=== PATIENT | male | born 1955 | race Caucasian/White ===

== ENCOUNTER 2021-12-22 14:02 | Inpatient (IN) | payer OTHER, MEDICAID ==
[~2021-12-22] VITALS: Ht 167.6 cm; Wt 67.6 kg
[2021-12-22 14:15] VITALS: BP_SYST 127
--- NOTE | 2021-12-22 14:15 | NUR ---
Patient to ER bed 2 to gown for evaluation. Side rails up. Report given to GRIFFIN MAHMOOD.
--- NOTE | 2021-12-22 14:30 | NUR ---
ER at bedside examining patient.
--- NOTE | 2021-12-22 14:45 | NUR ---
PT BIB [facility] FROM [facility] S/P SEIZURE.PT GIVEN ATIVAN PRIOR TO ARRIVAL. NO ACUTE DISTRESS NOTED AT THIS TIME.
--- NOTE | 2021-12-22 15:00 | NUR ---
PER EMS REPORT. PT COMMUNICATES WITH CELL PHONE. PT UNABLE TO USE COMPREHENIBLE LANGUAGE.
--- NOTE | 2021-12-22 15:20 | NUR ---
PT H/O HYPERLIPIDEMIA,CVA,HEMIPARESIS AND HEMIPLEGIA,HTN,GERD,BPH AND NONTRAUMATIC INTERCRANIAL HEMMORHAGE.
[2021-12-22 16:45] LABS: BASOPHILS # (AUTO) 0.1 K/uL (0.0-0.2); BASOPHILS % (AUTO) 1.9 % (0.0-2.0); EOSINOPHILS # (AUTO) 0.1 K/uL (0.0-0.4); EOSINOPHILS % (AUTO) 1.3 % (0.0-4.0); HEMATOCRIT 39.9 % (36-54); HEMOGLOBIN 13.4 g/dL (14.0-18.0); LYMPHOCYTES # (AUTO) 0.7 K/uL (1.0-5.5); LYMPHOCYTES % (AUTO) 9.6 % (20.5-51.5); MEAN CORPUSCULAR HEMOGLOBIN 31 pg (27-31); MEAN CORPUSCULAR HGB CONC 34 % (32-36); MEAN CORPUSCULAR VOLUME 92 fL (79.0-98.0); MONOCYTES # (AUTO) 0.2 K/uL (0.0-1.0); MONOCYTES % (AUTO) 2.9 % (1.7-9.3); NEUTROPHILS # (AUTO) 6.4 K/uL (1.8-7.7); NEUTROPHILS % (AUTO) 84.3 % (40.0-70.0); PLATELET COUNT (AUTO) 311 K/uL (130-430); RED BLOOD CELL COUNT(AUTO) 4.35 MIL/uL (4.2-6.2); RED CELL DISTRIBUTION WIDTH 14.5 % (9.0-15.0); WHITE BLOOD COUNT (AUTO) 7.6 K/uL (4.8-10.8)
[2021-12-22 16:52] LABS: ANION GAP 10 (5-15); CALCIUM 8.6 mg/dL (8.4-11.0); CHLORIDE 102 mmol/L (98-107); CREATININE 1.41 mg/dL (0.55-1.30); GLUCOSE 139 mg/dL (70-99); POTASSIUM 3.9 mmol/L (3.5-5.1); SODIUM SERUM 134 mmol/L (136-145); UREA NITROGEN, BLOOD 20 mg/dL (8-21)
[2021-12-22 17:01] LABS: ALANINE AMINOTRANSFERASE 14 U/L (12-78); ALBUMIN 3.5 g/dL (3.4-4.8); ASPARTATE AMINOTRANSFERASE 24 U/L (10-37); TOTAL BILIRUBIN 0.4 mg/dL (0.0-1.0)
[2021-12-22 17:07] LABS: GFR AFRICAN AMERICAN 64 mL/min (>90)
[2021-12-22] MEDS ORDERED: levETIRAcetam 1,000 MG IV BAG 100 ML IV ONE (18:45)
--- NOTE | 2021-12-22 19:20 | NUR ---
First contact with pt, pt has cc of seizure activity. Pt currently laying in gurney quietly, alert, and cooperative. S1S2 regular, resp even and unlabored, all other VSS, seizure precautions are in place. Will continue to monitor.
--- NOTE | 2021-12-22 19:44 | NUR ---
Admit bed requested Patient will be admitted to care of Dr. LOPEZ. Admitted to ICUunit. Diagnosis INTRACRANIAL HEMORRHAGE Inpatient (Yes or No) YES Observation (Yes or No) Orientation concerns or request close to nursing station (Yes or No) YES Covid Status PENDING On vent or bipap NO Isolation requirements NO Needs a sitter NO From Home (Yes or if No enter name of facility) [facility] Requires Dialysis (Yes or No) NO Med Rec Completed (Yes of No)YES
[2021-12-22] MEDS ORDERED: LORazepam 2 MG/ML VIAL IVP PRN (20:00)
[2021-12-22] MEDS ORDERED: INSULIN REGULAR, HUMAN 100 UNITS/ML, 10 ML VIAL (humuLIN R) SUBCUT PRN (20:00)
[2021-12-22] MEDS ORDERED: cloNIDine HCL 0.1 MG TABLET PO PRN (20:00)
[2021-12-22] MEDS ORDERED: DEXTROSE 50% JECT 50 ML DISP.SYRIN IVP PRN (20:00)
[2021-12-22] MEDS ORDERED: LOP600 PO (20:06)
[2021-12-22] MEDS ORDERED: CHOL500013 PO (20:06)
[2021-12-22] MEDS ORDERED: SENN-153 PO (20:06)
[2021-12-22] MEDS ORDERED: OMEP20CA4 GT (20:06)
[2021-12-22] MEDS ORDERED: CARB15DR EACH EYE (20:06)
[2021-12-22] MEDS ORDERED: CYAN250010 PO (20:06)
[2021-12-22] MEDS ORDERED: FOLI-43 PO (20:06)
[2021-12-22] MEDS ORDERED: INSU100V32 (20:06)
[2021-12-22] MEDS ORDERED: LEVE100S PO (20:06)
[2021-12-22] MEDS ORDERED: CLON0.1T PO (20:06)
[2021-12-22] MEDS ORDERED: LISI40TA13 PO (20:06)
[2021-12-22] MEDS ORDERED: DOCU100T9 PO (20:06)
[2021-12-22] MEDS ORDERED: NEU100 PO (20:06)
[2021-12-22] MEDS ORDERED: TAMS-11 PO (20:06)
[2021-12-22] MEDS ORDERED: UTI-STAT PO (20:06)
[2021-12-22] MEDS ORDERED: RIVA15TA PO (20:06)
[2021-12-22] MEDS ORDERED: TOBRADEXD RIGHT EYE (20:06)
[2021-12-22] MEDS ORDERED: NOR10 PO (20:06)
[2021-12-22] MEDS ORDERED: FENO145T PO (20:06)
[2021-12-22] MEDS ORDERED: BACL10TA PO (20:06)
[2021-12-22] MEDS ORDERED: MULT-1184 PO (20:06)
--- NOTE | 2021-12-22 20:06 | NUR ---
Medication reconciliation completed with information provided by JUNIOR HEADLEY. Any prior medication reconciliation on file was reviewed and corrected.
--- NOTE | 2021-12-22 20:15 | NUR ---
Pt provided with new linen. VSS, brother is at bedside.
--- NOTE | 2021-12-22 21:19 | NUR ---
Provided pt with small sips of water, per family's request. Pt tolerated well.
--- NOTE | 2021-12-22 23:53 | NUR ---
Pt laying in bed quietly with eyes closed. VSS
[2021-12-23] VITALS (24 sets, daily range): BP systolic 85–124
--- NOTE | 2021-12-23 01:45 | NUR ---
ICU ADMIT Patient is awake and alert. RR even and unlabored. Patient on RA, SR on the monitor. Skin warm and dry. IV18g to LFA. Safety precautions in place, call light within reach. Will continue to monitor.
[2021-12-23] MEDS: D5/0.45 NS 1,000 ML IV SCH ×2 (02:31→21:04)
--- NOTE | 2021-12-23 07:30 | NUR ---
REceived report bedside from overnight associate RN. Patient is resting in bed with no signs of acute distress. Patient's breathing is normal, unlabored and even. Breath sounds are clear bilaterally. Patient has Left forearm IV running D5/.5ns @ 60ml/hr, iv it patent with no signs of infiltration. 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 Patient skin is clear and intact. Reported that when patient is asleep, HR and BD tend to decrease, but when aroused, they come back WNL. Unable to fully assess alert and orientation because the patient does no speak wolof. When asking the patientn simple "YES or NO" questions, he answers appropriately and is able to communicate his needs.
--- NOTE | 2021-12-23 08:30 | NUR ---
NOTIFIED OF CONSULT ELLYN KAISER ORDERING PHY: DR. THOMAS REASON FOR CONSULT: [facility] DIALED: [phone] SPOKE TO: ELLYN MERIDA
--- NOTE | 2021-12-23 08:35 | NUR ---
NOTIFIED OF CONSULT KOSTA ESCOBAR ORDERING PHY: DR. LOPEZ REASON FOR CONSULT: [facility] DIALED: [phone] SPOKE TO: RADHA
[2021-12-23] MEDS: levETIRAcetam 500 MG in NS 100 ML IV SCH ×2 (08:38→21:04)
--- NOTE | 2021-12-23 09:30 | NUR ---
Received new orders from Dr. Schwartz for CT and venous Doppler.
--- NOTE | 2021-12-23 10:15 | NUR ---
Patient taken to CT scan with Nhung and RN on transport monitor.
--- NOTE | 2021-12-23 10:34 | NUR ---
returned from CT. Patient had bowel movement and was cleaned. Linen changed and patient skin is clear
[2021-12-23 14:05] LABS: CALCIUM 8.9 mg/dL (8.4-11.0); CREATININE 1.11 mg/dL (0.55-1.30); POTASSIUM 3.9 mmol/L (3.5-5.1)
--- NOTE | 2021-12-23 15:28 | NUR ---
Patient to be put on swallow precautions. Provider encouraged patient to eat some pureed diet. When fed, the patient swallowed but began coughing profusely Patient was able to swallow water without issues, but the pureed diet caused the patient to cough. Patient will now wait for a swallow screen to advance diet.
--- NOTE | 2021-12-23 18:24 | NUR ---
ST EVALUATION COMPLETED. ST TX NOT INDICATED AT THIS TIME. RECOMMEND PO DIET OF PUREE/NECTAR THICK LIQUIDS WITH 1:1 FEEDER AND FULL ASPIRATION PRECAUTIONS.
--- NOTE | 2021-12-23 19:00 | NUR ---
RECD REPORT FROM TRICE MAHMOOD, 1910 ASSUMED CARE, ALERT AND RESPONSIVE, VSS, AFEBRILE ON ROOM AIR. CONT TO MONITOR.
--- NOTE | 2021-12-23 19:30 | NUR ---
CALLED DR LOPEZ ADVISED DOWNGRADE TO TELE.
--- NOTE | 2021-12-23 19:45 | NUR ---
S/B DR BRAMBILA AT BEDSIDE NO NEW ORDERS.
[2021-12-24] VITALS (17 sets, daily range): BP systolic 98–145
[2021-12-24 07:00] LABS: BASOPHILS % (AUTO) 0.3 % (0.0-2.0); EOSINOPHILS # (AUTO) 0.2 K/uL (0.0-0.4); EOSINOPHILS % (AUTO) 3.5 % (0.0-4.0); HEMATOCRIT 35.5 % (36-54); HEMOGLOBIN 12.1 g/dL (14.0-18.0); LYMPHOCYTES # (AUTO) 1.6 K/uL (1.0-5.5); LYMPHOCYTES % (AUTO) 29.3 % (20.5-51.5); MEAN CORPUSCULAR HEMOGLOBIN 32 pg (27-31); MEAN CORPUSCULAR HGB CONC 34 % (32-36); MEAN CORPUSCULAR VOLUME 93 fL (79.0-98.0); MONOCYTES # (AUTO) 0.5 K/uL (0.0-1.0); MONOCYTES % (AUTO) 8.8 % (1.7-9.3); NEUTROPHILS # (AUTO) 3.3 K/uL (1.8-7.7); NEUTROPHILS % (AUTO) 58.1 % (40.0-70.0); PLATELET COUNT (AUTO) 250 K/uL (130-430); RED BLOOD CELL COUNT(AUTO) 3.84 MIL/uL (4.2-6.2); RED CELL DISTRIBUTION WIDTH 14.4 % (9.0-15.0); WHITE BLOOD COUNT (AUTO) 5.6 K/uL (4.8-10.8)
[2021-12-24 07:23] LABS: INR 1.1 (0.80-1.20); PROTHROMBIN TIME 11.2 SECS (9.5-12.5)
[2021-12-24 07:28] LABS: ALBUMIN 3.4 g/dL (3.4-4.8); CALCIUM 8.9 mg/dL (8.4-11.0); CREATININE 1.02 mg/dL (0.55-1.30); PHOSPHORUS 2.9 mg/dL (2.7-4.5); POTASSIUM 3.5 mmol/L (3.5-5.1); TOTAL BILIRUBIN 0.6 mg/dL (0.0-1.0)
[2021-12-24] MEDS: levETIRAcetam 500 MG in NS 100 ML IV SCH ×2 (09:01→21:34)
[2021-12-24 10:55] LABS: FREE T4 (FREE THYROXINE) 1.1 ng/dL (0.6-1.6); THYROID STIMULATING HORMONE 1.67 uIu/mL (0.34-4.82)
[2021-12-24] MEDS: D5/0.45 NS 1,000 ML IV SCH (16:14)
--- NOTE | 2021-12-24 16:29 | NUR ---
PATIENTAAOX1 NON VERBAL LTSIDE HEMIPLEGIA ROOM AIR NO SOB NON LABORED BREATHING ABDOMEN SOFT NON TENDER DIET TOLERATED TELE;SR DENIED CHEST PAIN ANY PAIN SBP KEEP;110 OVER SKIN IS DRY INTACT NO EDEMA NOTED FAMILY MEMBER BROTHER AND SISTER AT BEDSIDE B-MRI EEG DONE WILL CONTINUE MONITORING CLOSE OBSERVATION
[2021-12-24] MEDS: PEG 400/HYPROMELLOSE/GLYCERIN 15 ML DROPS OP SCH ×2 (18:00→21:34)
--- NOTE | 2021-12-24 19:45 | NUR ---
Pt report received. Pt alert, responsive, watching TV. Pt on RA with VSS per bedside residential roofer helper. Pt non-verbal, no s/s distress or pain. LFA PIV patent and secure with D5 1/2 NS at 60 mL/hr. Condom cath in place draining clear yellow urine to bag. No seizure activity noted. Bed in low position, SR up x 2, call light in reach.
[2021-12-24] MEDS ORDERED: hydrALAZINE HCL 20 MG/ML VIAL IVP PRN (20:30)
--- NOTE | 2021-12-24 20:44 | NUR ---
TRANSFER TO [facility] FROM ICU PATIENT RECEIVED, AWAKE, ALERT, NO S/S OF ACUTE DISTRESS. BREATHING IS EVEN AND UNLABORED. HOB RAISED. IV SITE PATENT, NO SIGNS OF INFILTRATION OR INFECTION NOTED. CONDOM CATH ATTACHED AND DRAINING BY GRAVITY. PATIENT DENIES PAIN. CALL LIGHT WITH PATIENT, DEMONSTRATED BACK PROPER USE. BED ALARM ON. BED IS LOCKED AND AT LOWEST POSITION. WILL CONTINUE TO MONITOR.
--- NOTE | 2021-12-24 20:46 | NUR ---
Pt transferred to [facility] Rm 119A in stable condition via hospital bed and on satellite project site monitor. Report given to ELA Ruiz.
[2021-12-24 23:56] LABS: BILIRUBIN,URINE NEGATIVE (NEGATIVE); BLOOD, URINE NEGATIVE (NEGATIVE); CLARITY/URINE CLEAR (CLEAR); COLOR,URINE YELLOW (YELLOW); GLUCOSE,URINE NEGATIVE (NEGATIVE); KETONES,URINE TRACE (NEGATIVE); LEUKOCYTE ESTERASE ,URINE NEGATIVE (NEGATIVE); NITRITE, URINE NEGATIVE (NEGATIVE); PROTEIN URINE NEGATIVE (NEGATIVE)
[2021-12-25] VITALS: BP_SYST 134
[2021-12-25] MEDS: D5/0.45 NS 1,000 ML IV SCH ×2 (02:08→21:55)
--- NOTE | 2021-12-25 03:47 | NUR ---
Consultation Paged Reason for Consultation: abnormal EKG Was consult called: Y Person who was notified: Shana Consulting Physician: Dr. Ballard Ordering Physician: Dr. Schwartz
--- NOTE | 2021-12-25 07:30 | NUR ---
CLOSING NOTE ENDORSED TO DAYSHIFT NURSE. PATIENT IN BED, WATCHING TV. ALL NEEDS MET.
[2021-12-25 08:00] VITALS: BP_SYST 138
[2021-12-25 08:25] LABS: BASOPHILS % (AUTO) 0.3 % (0.0-2.0); EOSINOPHILS # (AUTO) 0.2 K/uL (0.0-0.4); EOSINOPHILS % (AUTO) 3.8 % (0.0-4.0); HEMATOCRIT 37.7 % (36-54); HEMOGLOBIN 12.7 g/dL (14.0-18.0); LYMPHOCYTES # (AUTO) 1.4 K/uL (1.0-5.5); LYMPHOCYTES % (AUTO) 25.5 % (20.5-51.5); MEAN CORPUSCULAR HEMOGLOBIN 31 pg (27-31); MEAN CORPUSCULAR HGB CONC 34 % (32-36); MEAN CORPUSCULAR VOLUME 92 fL (79.0-98.0); MONOCYTES # (AUTO) 0.4 K/uL (0.0-1.0); MONOCYTES % (AUTO) 7.7 % (1.7-9.3); NEUTROPHILS # (AUTO) 3.5 K/uL (1.8-7.7); NEUTROPHILS % (AUTO) 62.7 % (40.0-70.0); PLATELET COUNT (AUTO) 266 K/uL (130-430); RED BLOOD CELL COUNT(AUTO) 4.12 MIL/uL (4.2-6.2); RED CELL DISTRIBUTION WIDTH 14.3 % (9.0-15.0); WHITE BLOOD COUNT (AUTO) 5.5 K/uL (4.8-10.8)
[2021-12-25 08:52] LABS: ALBUMIN 3.1 g/dL (3.4-4.8); CALCIUM 8.6 mg/dL (8.4-11.0); CREATININE 1.09 mg/dL (0.55-1.30); POTASSIUM 3.7 mmol/L (3.5-5.1); TOTAL BILIRUBIN 0.4 mg/dL (0.0-1.0)
[2021-12-25] MEDS: levETIRAcetam 500 MG in NS 100 ML IV SCH (09:57)
[2021-12-25] MEDS: PEG 400/HYPROMELLOSE/GLYCERIN 15 ML DROPS OP SCH ×4 (09:58→21:54)
[2021-12-25] MEDS: lisinopriL 20 MG TABLET PO SCH (09:59)
[2021-12-25] MEDS ORDERED: cloNIDine HCL 0.1 MG TABLET PO SCH (11:45)
[2021-12-25 12:00] VITALS: BP_SYST 147
[2021-12-25] MEDS ORDERED: lisinopriL 5 MG TABLET PO SCH (12:00)
[2021-12-25] MEDS ORDERED: CYANOCOBALAMIN 1000 mCg TABLET PO ONE (12:00)
[2021-12-25] MEDS ORDERED: lisinopriL 20 MG TABLET PO SCH (12:00)
[2021-12-25] MEDS ORDERED: TOBRAMYCIN/DEXAMETHASONE Non-Formulary EYE DROPS.SUSP 2.5 ML OP SCH (13:00)
[2021-12-25 16:00] VITALS: BP_SYST 142
--- NOTE | 2021-12-25 20:00 | NUR ---
OPENING NOTE PATIENT IS AWAKE, ALERT, NO S/S OF ACUTE DISTRESS. PT IS NON VERBAL AND COMMUNICATED WITH THUMBS UP AND GESTURES. BREATHING IS EVEN AND UNLABORED. HOB RAISED. IV SITE PATENT, NO SIGNS OF INFILTRATION OR INFECTION NOTED. CONDOM CATH WAS REMOVED BY PT AND URINAL WAS GIVEN PATIENT DENIES PAIN. CALL LIGHT WITH PATIENT, DEMONSTRATED BACK PROPER USE. ALL SAFETY AND SEIZURE PRECAUTIONS IN PLACE
[2021-12-25 20:41] VITALS: BP_SYST 142
[2021-12-25] MEDS: BACLOFEN 10 MG TABLET PO SCH (21:54)
[2021-12-25] MEDS: levETIRAcetam 500 MG TABLET PO SCH (21:54)
[2021-12-26 01:20] VITALS: BP_SYST 126
--- NOTE | 2021-12-26 02:00 | NUR ---
PT IN BED ASLEEP WITH NO S/S OF DISTRESS NOTED. SAFETY AND SEIZURE PRECAUTIONS REMAIN IN PLACE
--- NOTE | 2021-12-26 07:30 | NUR ---
CLOSING NOTE REPORT GIVEN TO DAY SHIFT RN. PT IN ROOM AWAKE WATCHING TV AT THIS TIME. ALL SAFETY AND SEIZURE PRECAUTIONS REMAIN IN PLACE
[2021-12-26 07:41] LABS: CREATININE 1.18 mg/dL (0.55-1.30); POTASSIUM 3.8 mmol/L (3.5-5.1)
[2021-12-26 07:52] LABS: BASOPHILS % (AUTO) 0.2 % (0.0-2.0); EOSINOPHILS # (AUTO) 0.2 K/uL (0.0-0.4); EOSINOPHILS % (AUTO) 1.8 % (0.0-4.0); HEMATOCRIT 35.4 % (36-54); LYMPHOCYTES % (AUTO) 22.3 % (20.5-51.5); MEAN CORPUSCULAR HEMOGLOBIN 31 pg (27-31); MEAN CORPUSCULAR HGB CONC 34 % (32-36); MEAN CORPUSCULAR VOLUME 91 fL (79.0-98.0); MONOCYTES # (AUTO) 0.6 K/uL (0.0-1.0); MONOCYTES % (AUTO) 6.4 % (1.7-9.3); NEUTROPHILS # (AUTO) 6.2 K/uL (1.8-7.7); NEUTROPHILS % (AUTO) 69.3 % (40.0-70.0); PLATELET COUNT (AUTO) 265 K/uL (130-430); RED BLOOD CELL COUNT(AUTO) 3.88 MIL/uL (4.2-6.2); RED CELL DISTRIBUTION WIDTH 14.4 % (9.0-15.0)
[2021-12-26] MEDS ORDERED: PANTOPRAZOLE SODIUM 40 MG TAB PO SCH (09:00)
[2021-12-26] MEDS ORDERED: TAMSULOSIN HCL 0.4 MG CAP PO SCH (09:00)
[2021-12-26] MEDS ORDERED: CYANOCOBALAMIN 1000 mCg TABLET PO SCH (09:00)
[2021-12-26] MEDS ORDERED: GEMFIBROZIL 600 MG TABLET (LOPID) PO SCH (09:00)
[2021-12-26] MEDS ORDERED: CHOLECALCIFEROL (VITAMIN D3) 5,000 UNIT TABLET PO SCH (09:00)
[2021-12-26] MEDS ORDERED: OMEPRAZOLE Non-Formulary 20 MG CAPSULE.DR GT SCH (09:00)
[2021-12-26] MEDS: PEG 400/HYPROMELLOSE/GLYCERIN 15 ML DROPS OP SCH ×2 (09:12→13:00)
[2021-12-26] MEDS: levETIRAcetam 500 MG TABLET PO SCH (09:14)
[2021-12-26] MEDS: lisinopriL 20 MG TABLET PO SCH (09:15)
[2021-12-26] MEDS: BACLOFEN 10 MG TABLET PO SCH (09:29)
[2021-12-26 09:52] VITALS: BP_SYST 158
[2021-12-26 11:00] VITALS: BP_SYST 158
--- NOTE | 2021-12-26 11:30 | NUR ---
Discharge Planning: [facility]NP faxed pt referral to [facility]#[phone] and spoke to admissions pt will go to Rm 26B, [facility]NP arranged transport with [facility] [phone] S 4:00pm P/U. DCP made nurse and CM aware. Patient packet taken to nurse station.
[2021-12-26] MEDS ORDERED: LISI20TA30 PO (13:43)
== END 2021-12-26 17:29 | DRG 64 ==
LOC: SED 14:02 → SIC 19:21 → STU 12-24 21:21
PROVIDERS: ADMIT Internal Medicine; ATTEND Internal Medicine
PROC: 4A10X4Z Monitoring of Central Nervous Electrical Activity, External Approach (ICD-10-PCS; principal; 2021-12-24)
DX: I61.1 Nontraumatic intracerebral hemorrhage in hemisphere, cortical (principal); N17.0 Acute kidney failure with tubular necrosis; E44.1 Mild protein-calorie malnutrition; R47.01 Aphasia; I69.351 Hemiplegia and hemiparesis following cerebral infarction affecting right dominant side; G40.409 Other generalized epilepsy and epileptic syndromes, not intractable, without status epilepticus; E78.5 Hyperlipidemia, unspecified; I12.9 Hypertensive chronic kidney disease with stage 1 through stage 4 chronic kidney disease, or unspecified chronic kidney disease; E11.22 Type 2 diabetes mellitus with diabetic chronic kidney disease; N18.9 Chronic kidney disease, unspecified; N40.0 Benign prostatic hyperplasia without lower urinary tract symptoms; D64.9 Anemia, unspecified; E11.21 Type 2 diabetes mellitus with diabetic nephropathy; Z20.822 Contact with and (suspected) exposure to COVID-19; G93.89 Other specified disorders of brain; Z74.01 Bed confinement status; Z86.718 Personal history of other venous thrombosis and embolism; Z93.1 Gastrostomy status; Z68.24 Body mass index [BMI] 24.0-24.9, adult
CPT/HCPCS: 36415; 70450-TC; 70551; 71045; 76376; 80048; 80053; 80061; 81003; 82306; 82607; 82962; 83735; 84100; 84439; 84443; 84484; 85025; 85610-TC; 85730-TC; 87081; 92610-GN; 93005; 93306; 93880; 93970; 95816; 96374; 97110-GP; 97530-GP; 99285; G0378; J1815; J1953

== ENCOUNTER 2022-05-12 22:30 | Emergency (ER) | payer OTHER, MEDICAID ==
[~2022-05-12] VITALS: Ht 165.1 cm; Wt 61.2 kg
[~2022-05-12 22:30] MED LIST: CARB15DR EACH EYE; CHOL500013 PO; CLON0.1T PO; CYAN250010 PO; DOCU100T9 PO; FENO145T PO; FOLI-43 PO; INSU100V32; LEVE100S PO; LISI20TA30 PO; MULT-1184 PO; OMEP20CA4 GT; SENN-153 PO; TAMS-11 PO; TOBRADEXD RIGHT EYE; UTI-STAT PO
[2022-05-12 22:34] VITALS: BP_SYST 164
[2022-05-12] MEDS ORDERED: NACL 0.9% 1,000 ML IV ONE (22:45)
[2022-05-12] MEDS ORDERED: LORazepam 2 MG/ML VIAL ONE (23:14)
[2022-05-12] MEDS ORDERED: LORazepam 2 MG/ML VIAL IVP ONE (23:15)
[2022-05-12 23:18] LABS: BASOPHILS % (AUTO) 0.5 % (0.0-2.0); EOSINOPHILS # (AUTO) 0.4 K/uL (0.0-0.4); EOSINOPHILS % (AUTO) 5.5 % (0.0-4.0); HEMATOCRIT 34.9 % (36-54); LYMPHOCYTES # (AUTO) 2.8 K/uL (1.0-5.5); LYMPHOCYTES % (AUTO) 37.7 % (20.5-51.5); MEAN CORPUSCULAR HEMOGLOBIN 33 pg (27-31); MEAN CORPUSCULAR HGB CONC 34 % (32-36); MEAN CORPUSCULAR VOLUME 95 fL (79.0-98.0); MONOCYTES # (AUTO) 0.5 K/uL (0.0-1.0); NEUTROPHILS # (AUTO) 3.8 K/uL (1.8-7.7); NEUTROPHILS % (AUTO) 50.3 % (40.0-70.0); PLATELET COUNT (AUTO) 234 K/uL (130-430); RED BLOOD CELL COUNT(AUTO) 3.67 MIL/uL (4.2-6.2); RED CELL DISTRIBUTION WIDTH 14.4 % (9.0-15.0); WHITE BLOOD COUNT (AUTO) 7.5 K/uL (4.8-10.8)
[2022-05-12 23:25] LABS: CALCIUM 9.8 mg/dL (8.4-11.0); CREATININE 1.57 mg/dL (0.55-1.30); POTASSIUM 3.4 mmol/L (3.5-5.1)
[2022-05-12] MEDS ORDERED: HALOPERIDOL LACTATE 5 MG/ML VIAL IVP ONE (23:30)
[2022-05-12 23:31] LABS: ALBUMIN 3.5 g/dL (3.4-4.8); TOTAL BILIRUBIN 0.4 mg/dL (0.0-1.0)
[2022-05-13] MEDS ORDERED: ALPRAZolam 0.25 MG TABLET PO ONE (02:45)
[2022-05-13 04:05] LABS: PROTHROMBIN TIME 10.8 SECS (9.5-12.5)
[2022-05-13] MEDS ORDERED: DEXTROSE 50% JECT 50 ML DISP.SYRIN ONE (04:44)
[2022-05-13] MEDS ORDERED: DEXTROSE 50% JECT 50 ML DISP.SYRIN IVP ONE (04:45)
[2022-05-13 05:21] VITALS: BP_SYST 137
== END 2022-05-13 05:24 | disposition short-term general hospital (02) ==
LOC: SED 22:30
DX: I61.9 Nontraumatic intracerebral hemorrhage, unspecified (principal); I10 Essential (primary) hypertension; E78.5 Hyperlipidemia, unspecified; Z79.4 Long term (current) use of insulin; Z79.899 Other long term (current) drug therapy
CPT/HCPCS: 99291; 96374; 70450; 96361; 96375 ×2; 87426; 80053; 82962; 85025; 85610; 85730; 36415; 71045; 76376; 93005; J1630; J2060; J7030